=== PATIENT | male | born 1935 | race Caucasian/White ===

== ENCOUNTER → 2016-05-22 | Outpatient (CLI) | payer OTHER, MEDICARE ==
[~2016-05-22] MED LIST: AMLODIPINE BESY1 TAB PO; ANTIBIOTIC O500 U/GM T; B-121000 MCG PO; CLINDAMYCIN150 MG PO; COUMADIN10 M1 PO; HYDRODIURIL25 MG PO; LISINOPRIL40 MG PO; MAGNESIUM DR64 MG PO; METFORMIN HCL500 MG PO; PHENERGAN25 M1 PO; POTASSIUM CHLO20 ME1 PO; PROTONIX40 MG PO; SIMETHICONE PO; WARFARIN SODIUM5 MG PO
--- NOTE | ~2016-05-22 | PR ---
[place], [place] PROGRESS NOTE [id number] UNIT #: [id number] ROOM: DOCTOR: CHICHO OCONNOR M.D. BIRTHDATE: [birth year] DOS: 05/22/2016 CHIEF COMPLAINT: Followup of wound of the right lower extremity. HISTORY OF PRESENT ILLNESS: The location is the anterior lower leg tibia. Quality is diabetic, venous insufficiency, traumatic in nature. Duration has been a little over a month. He comes in today for a subsequent visit. He has been using the dressing which we had recommended, which was Aquacel. He had no complaints of pain or discomfort. No drainage. The wound has been scabbed over and has not drained for the past several days now. His edema is improved with the Tubigrip. OBJECTIVE: VITAL SIGNS: As follows: Blood pressure is 140/80, temperature is 98.2, pulse is 68, respirations 18. SKIN: The wound is essentially healed. There is a small scab over it. It is not tender. There is no purulence. There is no sign of infection. There is no drainage. There is no cellulitis. Edema seems improved. Debridement was not done today. ASSESSMENT AND PLAN: Healed wound of the right lower extremity. We will have the patient just keep this protected for now and to let the scab fall off naturally. I did explain if this reopens, he should come back and see us. I did suggest for him to try to get some compression stockings that are at least light compression that he can wear at home to help his edema. CHICHO OCONNOR MD CM:PNRAMOS [id number] CHICHO OCONNOR M.D. 05/22/16 0850 interface
== END ==
LOC: WOUNDCARE 03:57
DX: E11.622 Type 2 diabetes mellitus with other skin ulcer (principal); I87.2 Venous insufficiency (chronic) (peripheral); L97.811 Non-pressure chronic ulcer of other part of right lower leg limited to breakdown of skin

== ENCOUNTER → 2016-05-28 | Outpatient (CLI) | payer MEDICARE, OTHER ==
--- NOTE | ~2016-05-28 | PR ---
[place], [place] PROGRESS NOTE NAME: GIL BUSTILLO [facility] #: [id number] UNIT #: [id number] ROOM: DOCTOR: ELVIN DasilvaCHICHO BIRTHDATE: [birth year] DOS: 05/28/2016 CHIEF COMPLAINT: Followup of open ulcer of the right lower extremity. HISTORY OF PRESENT ILLNESS: This patient was seen last week and was discharged as it appeared that the wound had healed. It had developed a scab and we asked the patient just to let it fall off naturally. Apparently, he comes in today thinking that it may have opened up again. He said he was wearing a Band-Aid in the shower and it looked like it was starting to open up. He is not having any pain or discomfort. He denies any drainage. No fevers or chills. The wound has been present since approximately 5-6 weeks now. He has associated edema, venous insufficiency on clinical exam. PHYSICAL EXAMINATION: VITAL SIGNS: Stable. Blood pressure is 156/78, pulse of 60, respirations 16, temperature 97.6. EXTREMITIES: The wound is measuring 0.3 x 0.2 x 0.1. It is covered with a soft yellowish dried fibrin slough. This wound had not been debrided before, so I did explain to the patient that we should debride the wound. Debridement was done. The tissue removed was fibrin, slough and subcutaneous tissue. There was minimal amount of bleeding. The patient tolerated the debridement well. Cetacaine spray was used for topical anesthesia. A timeout was conducted prior to the start of the procedure. The post-debridement measurements are 0.8 x 0.4 x 0.2. 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 He does have quite a bit of edema on the right lower extremity. He says he has normally had more edema on the right leg than the left leg. We will go ahead and use a collagen dressing for now and have him use Tubigrip for edema control. I did explain that I would like to go ahead and check his venous and arterial system, those orders have been written for and we will reevaluate the patient next week. He may benefit from compression therapy, but we will see what his vascular status is first. Followup is in one week. [place], [place] PROGRESS NOTE NAME: GIL BUSTILLO UNIT #: [id number] ROOM: DOCTOR: CHICHO OCONNOR M.D. BIRTHDATE: [birth year] CHICHO OCONNOR MD CM:ASMITA [id number] CHICHO OCONNOR M.D. 05/29/16 0044 interface
== END | disposition home or self-care (01) ==
LOC: US 11:31 → WOUNDCARE 11:31
DX: E11.622 Type 2 diabetes mellitus with other skin ulcer (principal); L97.919 Non-pressure chronic ulcer of unspecified part of right lower leg with unspecified severity; I73.9 Peripheral vascular disease, unspecified; R60.0 Localized edema

== ENCOUNTER → 2016-06-04 | Outpatient (CLI) | payer MEDICARE, OTHER ==
--- NOTE | ~2016-06-04 | PR ---
[place], [place] PROGRESS NOTE NAME: GIL BUSTILLO [facility] #: [id number] UNIT #: [id number] ROOM: DOCTOR: CHICHO OCONNOR M.D. BIRTHDATE: [birth year] DOS: 06/04/2016 CHIEF COMPLAINT: Followup of the wound of the right lower extremity. HISTORY OF PRESENT ILLNESS: The location is the anterior lower tibia, quality is diabetic, venous insufficiency and traumatic in origin. Duration has been over a month. He was seen last week as we had thought that the wound had healed, but however, was still and had recurred, so he comes in today, we were using a Tubigrip for compression. The wound was quite small. It looks to be healed at this point. There is a small scab over it. It is not causing any pain. He says his edema is much better than before. His vitals are stable. Temperature is 98.1, pulse is 68, respirations 16, and blood pressure is 140/84. The patient had venous and arterial studies done; the venous was negative for DVT in the arteries were no significant peripheral vascular disease as noted. The wound measurements are essentially 0.1 x 0.1 x 0.1 at this point it is covered with a small scab. This was debrided with a curette fibrin and slough only devitalized tissue was removed. The wound appears healed underneath it. There was no bleeding. The patient tolerated the procedure well. ASSESSMENT AND PLAN: Healed ulceration of the right lower extremity. We will discharge the patient. I did write him a script for light compression stockings to be utilized they have explained, he should use them every day, especially when he first wakes up in the morning and to take them off at night. He is to follow up in the [facility] if he has any repeat ulceration. At this point, he will be discharged. CHICHO OCONNOR MD CM:PNTRANS [id number] CHICHO OCONNOR M.D. 06/04/16 2253 interface
== END ==
LOC: WOUNDCARE 00:53
DX: E11.622 Type 2 diabetes mellitus with other skin ulcer (principal); I87.2 Venous insufficiency (chronic) (peripheral); L97.811 Non-pressure chronic ulcer of other part of right lower leg limited to breakdown of skin

== ENCOUNTER → 2016-06-18 | Outpatient (CLI) | payer MEDICARE ==
[2016-06-18 08:35] LABS: BASO % 0.4 % (0.0-1.0); EOS # 0.1 10*3/uL (0.0-0.4); EOS % 0.9 % (1.0-4.0); HEMATOCRIT 45.3 % (42.0-52.0); HEMOGLOBIN 15.2 g/dl (14.0-18.0); IG # 0.1 10*3/uL (0.0-0.1); LYMPH # 0.8 10*3/uL (1.3-4.4); LYMPH % 8.5 % (27.0-41.0); MEAN CELL VOLUME 90.4 fl (80.0-94.0); MEAN CORPUSCULAR HGB 30.3 pg (27.0-31.0); MEAN CORPUSCULAR HGB CONC 33.6 g/dl (33.0-37.0); MEAN PLATELET VOLUME 9.5 fl (9.6-12.3); MONO # 0.8 10*3/uL (0.1-1.0); MONO % 9.2 % (3.0-9.0); NEUT # 7.3 10*3/uL (2.3-7.9); NEUT % 80.4 % (47.0-73.0); PLATELET COUNT AUTOMATED 196 10*3/uL (130-400); RED BLOOD COUNT 5.01 10*6/uL (4.50-5.90); RED CELL DISTRI WIDTH 13.5 % (0-14.5)
[2016-06-18 08:57] LABS: CHLORIDE 102 mmol/L (98-107); POTASSIUM 3.8 mmol/L (3.5-5.1); SODIUM 136 mmol/L (136-145)
[2016-06-18 09:24] LABS: ALBUMIN 3.3 gm/dl (3.1-4.5); ALKALINE PHOSPHATASE 98 U/L (45-117); BILIRUBIN, TOTAL 1.1 mg/dl (0.2-1.0); BUN 18 mg/dl (7-24); CARBON DIOXIDE 24 mmol/L (21-32); EST GLOM FILT AFRICAN AMERICAN > 60 ml/min; GLUCOSE 99 mg/dL (65-99); SGOT/AST 14 IU/L (3-35); SGPT/ALT 16 U/L (12-78); TOTAL PROTEIN 7.2 gm/dL (6.4-8.2)
[2016-06-19 22:05] LABS: FECAL WBC Final report (None Seen)
== END | disposition home or self-care (01) ==
LOC: LAB 08:08
PROVIDERS: Internal Medicine
DX: K59.1 Functional diarrhea (principal)

== ENCOUNTER → 2016-07-23 | Outpatient (CLI) | payer MEDICARE | END | disposition home or self-care (01) | LOC: LAB 08:12 | DX: R19.7 Diarrhea, unspecified (principal) ==

== ENCOUNTER → 2016-08-19 | Outpatient (CLI) | payer MEDICARE | END | disposition home or self-care (01) | LOC: CARD 08:31 | DX: I08.3 Combined rheumatic disorders of mitral, aortic and tricuspid valves (principal); E11.9 Type 2 diabetes mellitus without complications; I49.9 Cardiac arrhythmia, unspecified; I10 Essential (primary) hypertension; I48.2 Chronic atrial fibrillation; R01.1 Cardiac murmur, unspecified ==

== ENCOUNTER 2016-10-30 07:36 | Inpatient (IN) | payer MEDICARE ==
[~2016-10-30] VITALS: Ht 175.2 cm; Wt 96.4 kg
[2016-10-30] VITALS (7 sets, daily range): BP systolic 128–143; BP diastolic 61–80
--- NOTE | ~2016-10-30 | PR ---
[place], [place] PROGRESS NOTE NAME: GIL BUSTILLO UNIT #: [id number] ROOM: 512 DOCTOR: BLANCA LEVY MD BIRTHDATE: [birth year] DOS: 11/02/2016 SUBJECTIVE: The patient was seen in the Cardiology Department today 11/02/2016 prior to his stress test. He is an 81-year-old man whom I evaluated on 10/30/2016 for permanent atrial fibrillation, slow heart rate response and an elevated troponin. He presented to the hospital with indigestion and dysuria. He was found to have mild elevation in troponin, which was felt to be due to a type 2 myocardial injury. He has had no further problems over the weekend. He is being treated for the urinary tract infection. He continues to have atrial fibrillation with slow ventricular response. PHYSICAL EXAMINATION: VITAL SIGNS: Today, his pulse is 64 and irregularly irregular. Blood pressure is 112/82. NECK: Supple. He has no jugular distention. Carotids are full. LUNGS: Respirations are unlabored. His chest is clear. HEART: Has an irregularly irregular rhythm. He has a grade 4/6 late peaking systolic ejection murmur along left sternal border. There are no diastolic murmurs present. The second heart sound is well preserved. ABDOMEN: Benign. EXTREMITIES: Showed no edema. IMPRESSION: 1. Myocardial injury, most likely due to demand ischemia. 2. Permanent atrial fibrillation. 3. Conduction system disorder, manifested by a slow ventricular response to the patient's atrial fibrillation. 4. Type 2 diabetes mellitus. 5. Essential hypertension. 6. Urinary tract infection. PLAN: We will risk stratify him further with a pharmacologic stress test today. Further recommendations will depend upon the results of his stress test. [place], [place] PROGRESS NOTE NAME: GIL BUSTILLO UNIT #: [id number] ROOM: 512 DOCTOR: BLANCA LEVY MD BIRTHDATE: [birth year] BLANCA LEVY MD CM:PNTRANS [id number] BLANCA LEVY MD 11/02/16 1116 interface
--- NOTE | ~2016-10-30 | CON ---
[place], [place] REPORT OF CONSULTATION NAME: GIL BUSTILLO UNIT #: [id number] ROOM: 512 DOCTOR: BLANCA LEVY MD BIRTHDATE: [birth year] DOS: 10/30/2016 REASON FOR CONSULTATION: Elevated troponin. HISTORY OF PRESENT ILLNESS: The patient is an 81-year-old man who is known to have chronic atrial fibrillation with a fairly slow ventricular response as well as moderate to severe aortic stenosis. He is being followed clinically. He is very sedentary because of severe degenerative joint disease. He is also known to have prostatic hypertrophy. The patient states that about 3 days ago, he ate a spare ribs and developed indigestion afterwards. The indigestion has persisted. He took antacids without any relief and then became concerned that the indigestion may be related to a cardiac issue. He therefore came to the emergency room. He was found to have atrial fibrillation with a fairly slow ventricular response and heart rate of about 60. His EKG showed an intraventricular conduction delay with left anterior fascicular block and atrial fibrillation, but no acute ST changes. Troponin levels were minimally elevated at 0.192, 0.265 and 0.283. Cardiology was therefore requested to assess the patient. He denies any chest pain, lightheadedness or syncope. He denies any dyspnea. He has not had any unexplained diaphoresis. He has been found, however, to have urinary tract infection with elevated white count at 11,200. PAST MEDICAL HISTORY: Positive for the followin. Atrial fibrillation with a fairly slow ventricular response. 2. Probable conduction system disorder. 3. Aortic stenosis. The patient's last echocardiogram on 08/19/2016 showed normal left ventricular size with mild concentric left ventricular hypertrophy, ejection fraction 60% with stage 1 diastolic relaxation abnormalities. Aortic valve is thickened with decreased leaflet excursion. Peak and mean gradients are 50 and 28 mmHg respectively with a calculated valve area of 0.9 cm2. Right ventricular systolic pressure was elevated at greater than 60 mmHg. 4. The patient reports history of several stress tests in the past. He was never told that any of them were abnormal. I have no record of a stress test at [facility]. 5. Essential hypertension. 6. Type 2 diabetes mellitus. 7. History of left total knee replacement. 8. History of cholecystectomy. MEDICATIONS: Prior to admission, amlodipine 10 mg daily, vitamin D 2000 units daily, vitamin B12 1000 mcg p.o. daily, hydrochlorothiazide 12.5 mg daily, lisinopril 40 mg daily, magnesium chloride 64 mg daily, metformin 500 mg t.i.d., potassium 20 mEq b.i.d., Florastor 250 mg b.i.d. and warfarin 7.5 mg alternating with 10 mg daily. ALLERGIES: He has no known drug allergies. REVIEW OF SYSTEMS: The patient denies diplopia or loss of vision. He denies [place], [place] REPORT OF CONSULTATION NAME: GIL BUSTILLO UNIT #: [id number] ROOM: 512 DOCTOR: BLANCA LEVY MD BIRTHDATE: [birth year] any focal weakness. He denies any lightheadedness or syncope. He denies orthopnea or PND. He denies fevers, chills or sweats. He denies any change in his bowel habits and denies any blood in stools. He does note that he is having a hard time passing his urine and he has dysuria and increased urinary frequency along with urgency, but no hematuria. He denies any peripheral edema. He does have chronic leg weakness and pain in his legs from degenerative joint disease. He does have swelling and pain in both of his knees. He denies polyuria or polydipsia. Remainder of the review of systems is negative except as noted above. FAMILY HISTORY: His father of cancer at age 82 and his mother of diabetes at age 81. SOCIAL HISTORY: The patient is and lives with his . He denies alcohol consumption. He was a smoker, but quit many years ago. PHYSICAL EXAMINATION: GENERAL: Reveals an elderly white male who is awake, alert and oriented. VITAL SIGNS: Pulse is 60 and irregularly irregular, blood pressure is 131/65. He is afebrile. He weighs 96.4 kg and has a body mass index of 31.4. HEENT: Normocephalic, atraumatic. Extraocular muscles are intact. Sclerae are clear. Pupils are round and reactive to light. The oral mucosa is moist. Tongue is midline. NECK: Supple. He has no jugular distention. Carotid upstrokes are somewhat slow. He does have transmitted murmurs into the carotids bilaterally. He has no neck or supraclavicular masses. No thyromegaly. LUNGS: Respirations are unlabored. His chest is clear to auscultation and percussion. He had no presacral edema or chest wall tenderness. CARDIOVASCULAR: His heart has an irregularly irregular rhythm. He has a grade 3/6 late peaking systolic ejection murmur along the left sternal border radiating toward the base. There are no diastolic murmurs. The first and second heart sounds are well preserved. There is no precordial heave, lift or thrill. ABDOMEN: Soft and normoactive. It is somewhat distended, but there is no fluid wave. There is no mass or tenderness and no rebound. EXTREMITIES: Show no pitting edema. Peripheral pulses are diminished in the feet. He has no cords or Homans sign. LABORATORY DATA: I reviewed his electrocardiogram, which shows atrial fibrillation with a fairly slow ventricular response. He has a left anterior fascicular block and an intraventricular conduction delay. IMPRESSION: 1. Elevated troponin, most likely, this represents a type 2 myocardial injury (demand ischemia) related to the patient's left ventricular hypertrophy, aortic stenosis, and compounded by a urinary tract infection. 2. Permanent atrial fibrillation. 3. Conduction system disorder with slow ventricular response to atrial fibrillation. 4. Type 2 diabetes mellitus. [place], [place] REPORT OF CONSULTATION NAME: GIL BUSTILLO UNIT #: [id number] ROOM: 512 DOCTOR: BLANCA LEVY MD BIRTHDATE: [birth year] 5. Essential hypertension. 6. Acute urinary tract infection. PLAN: I would continue to follow serial troponin levels to make sure that the patient does not have a diagnostic rise and fall in his troponin. For now; however, I think that he should have the urinary tract infection effectively treated. If he has no problems over the weekend, then I would do a risk stratifying myocardial perfusion study this coming Wednesday and further recommendations depend upon that. We will also be getting an echocardiogram to assess his left ventricular systolic function again. We will follow him with his primary physicians and we thank the hospitalist physicians for asking our advice regarding his care. BLANCA LEVY MD CM:CONSTR:REPORT OF CONSULTATION 1751 10/31/16 0258 interface
[2016-10-30 08:37] LABS: BILIRUBIN 1+ (NEGATIVE); BLOOD 3+ (NEGATIVE); CLARITY CLOUDY (CLEAR); COLOR YELLOW (YELLOW); GLUCOSE TRACE (NEGATIVE); KETONE TRACE (NEGATIVE); LEUKO ESTERASE TRACE (NEGATIVE); NITRITE NEGATIVE (NEGATIVE); SPECIFIC GRAVITY 1.025 (1.005-1.030)
[2016-10-30 08:44] LABS: BACTERIA 3+; RBC TNTC rbc/hpf (0-2); WBC TNTC wbc/hpf (0-5)
[2016-10-30 08:49] LABS: BASO % 0.2 % (0.0-1.0); EOS % 0.1 % (1.0-4.0); HEMATOCRIT 44.7 % (42.0-52.0); HEMOGLOBIN 14.7 g/dl (14.0-18.0); LYMPH # 0.5 10*3/uL (1.3-4.4); LYMPH % 4.6 % (27.0-41.0); MEAN CELL VOLUME 90.7 fl (80.0-94.0); MEAN CORPUSCULAR HGB 29.8 pg (27.0-31.0); MEAN CORPUSCULAR HGB CONC 32.9 g/dl (33.0-37.0); MEAN PLATELET VOLUME 9.9 fl (9.6-12.3); MONO # 0.8 10*3/uL (0.1-1.0); MONO % 7.3 % (3.0-9.0); NEUT # 9.8 10*3/uL (2.3-7.9); NEUT % 87.4 % (47.0-73.0); PLATELET COUNT AUTOMATED 161 10*3/uL (130-400); RED BLOOD COUNT 4.93 10*6/uL (4.50-5.90); WHITE BLOOD COUNT 11.2 10*3/uL (4.8-10.8)
[2016-10-30 08:58] LABS: ACT PARTIAL THROMBO TIME 44.3 SECONDS (20.8-31.5); INTERNATIONAL NORM RATIO 2.9 (2.0-3.5)
[2016-10-30 09:05] LABS: ALBUMIN 2.6 gm/dl (3.1-4.5); ALKALINE PHOSPHATASE 97 U/L (45-117); BUN 19 mg/dl (7-24); CHLORIDE 100 mmol/L (98-107); CREATININE 1.23 mg/dL (0.70-1.30); LIPASE 87 U/L (73-393); POTASSIUM 3.8 mmol/L (3.5-5.1); SGOT/AST 15 IU/L (3-35); SGPT/ALT 14 U/L (12-78); SODIUM 136 mmol/L (136-145); TOTAL PROTEIN 6.9 gm/dL (6.4-8.2)
[2016-10-30 09:13] LABS: TROPONIN I 0.192 ng/ml (<0.045)
--- NOTE | 2016-10-30 09:15 | NUR ---
DR MANCUSO NOTIFIED OF PATIENTS CRITICAL LAB RESULT TROPONIN.
--- NOTE | 2016-10-30 09:58 | NUR ---
REPORT GIVEN TO CJ DAY AT THIS TIME. PATIENT TRANSPORTED TO 5TH FLOOR BY THIS NURSE.
--- NOTE | 2016-10-30 10:00 | NUR ---
PATIENT NOTED WITH +[address] PITT[address] LOWER LEG E[address] MANCUSO AWARE.
--- NOTE | 2016-10-30 10:20 | NUR ---
A 81YO MALE, admitted to , under the services of RICHARD Ross DO with a diagnosis of NSTEMI/UTI. Chief complaint is EPIGASTRIC DISCOMFORT SINCE WEDNESDAY WITH NAUSEA, ALSO BURNING W/URINATION. Patient arrived via stretcher from ER. Monitor applied. Initial assessment completed. Vital signs taken and recorded. RICHARD ROSS DO notified of admission to the unit. Orders received. See assessment for past medical history, medications and allergies. Patient and/or family oriented to unit. [facility] visitation policy reviewed. Clothing/patient valuable form completed. CJ PEACOCK
--- NOTE | 2016-10-30 10:21 | NUR ---
5TH FLOOR NOTIFIED OF PATIENT IN ROOM. PATIENT USING RESTROOM.
[2016-10-30] MEDS ORDERED: VITAMIN D-32000 UNIT PO (10:54)
[2016-10-30] MEDS ORDERED: METFORMIN500 MG PO (10:54)
[2016-10-30] MEDS ORDERED: POTASSIUM CHLO20 ME3 PO (10:55)
[2016-10-30] MEDS ORDERED: HYDR25T PO (10:56)
--- NOTE | 2016-10-30 11:02 | NUR ---
MED REC UPDATED/COMPLETED USING INFORMATION FROM MEDICATIONS LIST PROVIDED BY THE PATIENT'S , LIST IS ON CHART.
--- NOTE | 2016-10-30 11:27 | NUR ---
PER DR. FERNÁNDEZ, HE WAS NOTIFIED OF CONSULT BY ED STAFF THIS MORNING.
--- NOTE | 2016-10-30 13:00 | NUR ---
DR. LEVY NOTIFIED OF MOST RECENT TROPONIN I, MAY PROCEED WITH CARDIAC DIET ORDER FOR LUNCH, PER DR. ELVY.
--- NOTE | 2016-10-30 15:53 | NUR ---
HEART RATE AFIB AND IRREGULAR IN 50'S, OCCASIONALLY LOW 36 BPM FOR BRIEF PERIODS OF TIME (LESS THAN [address]) [address] LEVY NOTIFIED.
[2016-10-30] MEDS ORDERED: KENALOG 0.1%80 GM T (16:29)
[2016-10-30] MEDS ORDERED: FLORASTOR250 MG PO (16:29)
--- NOTE | 2016-10-30 16:30 | NUR ---
PATIENT STATES TAKES 2 MG TABS OF COUMADIN NOT ONE THIS EVENING. MEDS LIST PROVIDED BY PATIENT STATES ONE TAB M/W/F AND ONE AND A HALF TABS T/H/SAT/SUN. PATIENT STATES TAKES 2 TABS T/W/H/F AND ONE AND A HALF TABS SAT/SUN/MON. CALLED PATIENT'S PHARMACY TO CONFIRM MEDS, ADDED KENALOG CREAM AND FLORASTOR TO MED REC, [facility]
[2016-10-31] VITALS: BP 117/56
[2016-10-31 06:25] LABS: BASO % 0.1 % (0.0-1.0); EOS # 0.1 10*3/uL (0.0-0.4); EOS % 0.7 % (1.0-4.0); HEMATOCRIT 41.4 % (42.0-52.0); HEMOGLOBIN 13.8 g/dl (14.0-18.0); LYMPH # 0.7 10*3/uL (1.3-4.4); LYMPH % 8.6 % (27.0-41.0); MEAN CELL VOLUME 89.4 fl (80.0-94.0); MEAN CORPUSCULAR HGB 29.8 pg (27.0-31.0); MEAN CORPUSCULAR HGB CONC 33.3 g/dl (33.0-37.0); MEAN PLATELET VOLUME 10.3 fl (9.6-12.3); MONO # 0.8 10*3/uL (0.1-1.0); MONO % 9.2 % (3.0-9.0); NEUT # 6.8 10*3/uL (2.3-7.9); NEUT % 80.8 % (47.0-73.0); PLATELET COUNT AUTOMATED 168 10*3/uL (130-400); RED BLOOD COUNT 4.63 10*6/uL (4.50-5.90); RED CELL DISTRI WIDTH 14.4 % (0-14.5); WHITE BLOOD COUNT 8.4 10*3/uL (4.8-10.8)
[2016-10-31 06:59] LABS: ALBUMIN 2.4 gm/dl (3.1-4.5); ALKALINE PHOSPHATASE 94 U/L (45-117); BUN 25 mg/dl (7-24); CHLORIDE 98 mmol/L (98-107); CHOLESTEROL 120 mg/dL (<200); CREATININE 1.34 mg/dL (0.70-1.30); FREE T4 1.37 ng/dl (0.76-1.46); HDL CHOLESTEROL 47 mg/dl (40-60); INTERNATIONAL NORM RATIO 2.9 (2.0-3.5); LDL CHOLESTEROL 56 mg/dL (9-159); MAGNESIUM 1.9 mg/dL (1.5-2.1); PHOSPHOROUS 3.1 mg/dL (2.5-4.9); POTASSIUM 3.5 mmol/L (3.5-5.1); SGOT/AST 11 IU/L (3-35); SGPT/ALT 12 U/L (12-78); SODIUM 136 mmol/L (136-145); TOTAL PROTEIN 6.6 gm/dL (6.4-8.2); TRIGLYCERIDES 87 mg/dl (<150); VLDL CHOLESTEROL 17 mg/dL (6-40)
[2016-10-31 08:00] VITALS: BP 146/70
[2016-10-31 09:12] LABS: VITAMIN D, 25-HYDROXY 32.6 ng/mL (30-100)
--- NOTE | 2016-10-31 11:49 | NUR ---
DR VAUGHN NOTIFIED OF PT IS HAVING BRADYCARDIA WITH LOPRESSOR GIVEN THIS AM. ORDERS RECEIVED TO HOLD IF HEART RATE LESSA THAN 55. WILL MONITOR
[2016-10-31 12:00] VITALS: BP 119/56
[2016-10-31 16:00] VITALS: BP 141/75
[2016-10-31 20:00] VITALS: BP 150/68
--- NOTE | 2016-10-31 20:00 | NUR ---
RESTING IN BED WATCHING TV WITH NO DISTRESS NOTED. RESPIRATIONS EASY. LUNGS DIMINISHED, CLEAR. PULSE OX 97% RA. TRACE BLE EDEMA. CALL LIGHT WITHIN REACH. NO VOICED COMPLAINTS. PRESENT AT BEDSIDE
--- NOTE | 2016-10-31 22:00 | NUR ---
LOPRESSOR HELD PER DR PARAMETERS. HR 45. PATIENT ASYMTPOMATIC
[2016-11-01] VITALS: BP 160/80
--- NOTE | 2016-11-01 | NUR ---
DROWSY, RESTING IN BED. RESPIRATIONS EASY. VSS. CALL LIGHT WITHIN REACH. PRESENT AT BEDSIDE.
--- NOTE | 2016-11-01 04:30 | NUR ---
SLEEPING. NO DISTRESS NOTED. RESPIRATIONS EASY. CALL LIGHT WITHIN REACH. REMAINS SLEEPING AT BEDSIDE
--- NOTE | 2016-11-01 06:00 | NUR ---
SLEPT THROUGHOUT NIGHT WITH NO DISTRESS NOTED. RESPIRATIONS EASY. CALL LIGHT WITHIN REACH. NO VOICED COMPLAINTS THIS SHIFT. REMAINS AT BEDSIDE
[2016-11-01 06:41] LABS: BASO % 0.4 % (0.0-1.0); EOS # 0.1 10*3/uL (0.0-0.4); HEMATOCRIT 42.3 % (42.0-52.0); HEMOGLOBIN 13.9 g/dl (14.0-18.0); LYMPH # 0.7 10*3/uL (1.3-4.4); LYMPH % 12.1 % (27.0-41.0); MEAN CELL VOLUME 89.6 fl (80.0-94.0); MEAN CORPUSCULAR HGB 29.4 pg (27.0-31.0); MEAN CORPUSCULAR HGB CONC 32.9 g/dl (33.0-37.0); MEAN PLATELET VOLUME 10.6 fl (9.6-12.3); MONO # 0.6 10*3/uL (0.1-1.0); MONO % 10.8 % (3.0-9.0); NEUT # 4.1 10*3/uL (2.3-7.9); NEUT % 74.2 % (47.0-73.0); PLATELET COUNT AUTOMATED 180 10*3/uL (130-400); RED BLOOD COUNT 4.72 10*6/uL (4.50-5.90); RED CELL DISTRI WIDTH 13.9 % (0-14.5); WHITE BLOOD COUNT 5.6 10*3/uL (4.8-10.8)
[2016-11-01 06:43] LABS: INTERNATIONAL NORM RATIO 3.2 (2.0-3.5)
[2016-11-01 07:09] LABS: ALBUMIN 2.3 gm/dl (3.1-4.5); ALKALINE PHOSPHATASE 93 U/L (45-117); BUN 30 mg/dl (7-24); CHLORIDE 99 mmol/L (98-107); CREATININE 1.35 mg/dL (0.70-1.30); POTASSIUM 3.4 mmol/L (3.5-5.1); SGOT/AST 14 IU/L (3-35); SGPT/ALT 12 U/L (12-78); SODIUM 136 mmol/L (136-145); TOTAL PROTEIN 6.5 gm/dL (6.4-8.2)
[2016-11-01 08:00] VITALS: BP 142/66
--- NOTE | 2016-11-01 11:19 | NUR ---
PT C/O CONSTIPATION. DULCOLAX 5 MG GIVEN PER PT REQUEST.
[2016-11-01 12:00] VITALS: BP 141/67
[2016-11-01 16:00] VITALS: BP 151/64
--- NOTE | 2016-11-01 19:56 | NUR ---
PATIENT IS RESTING IN BED WITH AT BEDSIDE. PLEASANT/COOPERATIVE WITH CARE. NO VOICED COMPLAINTS. NO SXS OF DISTRESS. CALL LIGHT IS IN REACH. WILL MONITOR.
[2016-11-01 20:00] VITALS: BP 160/63
[2016-11-02] VITALS: BP 179/90
--- NOTE | 2016-11-02 02:48 | NUR ---
PATIENT IS RESTING IN BED WITH AT THE BEDSIDE. NO COMPLAINTS AT THIS TIME. CALL LIGHT IS IN REACH. WILL CONTINUE TO MONITOR.
[2016-11-02 04:30] VITALS: BP 144/70
--- NOTE | 2016-11-02 06:34 | NUR ---
SLEPT THROUGHOUT SHIFT WITH NO VOICED COMPLAINTS. CURRENTLY SITTING IN ROOM WITH . NO SXS OF DISTRESS AND CALL LIGHT IS IN REACH.
[2016-11-02 06:51] LABS: INTERNATIONAL NORM RATIO 2.2 (2.0-3.5)
--- NOTE | 2016-11-02 08:03 | NUR ---
CHART CHECK COMPLETE.
--- NOTE | 2016-11-02 09:00 | NUR ---
case management attempted to visit with patient, patient out of his room for testing, will see later today
--- NOTE | 2016-11-02 09:02 | NUR ---
PT OFF FLOOR FOR STRESS TEST WITH DR LEVY.
--- NOTE | 2016-11-02 10:12 | NUR ---
INFORMED CONSENT SIGNED FOR LEXISCAN STRESS TEST WITH DR. LEVY. RESTING EKG A-FIB WITH PVCS, TRIGEMINY, HR 69, BP 128/88. PULSE OX 97% AND LUNGS CLEAR. COMPLETED ONE MINUTE OF LEXISCAN PROTOCOL RECEIVING LEXISCAN 0.4MG OVER 10 SECONDS. PVC'S (COUPLETS/TRIPTLETS) NOTED WITH NO ST CHANGES. PT C/O SOB. LAST RECOVERY HR 65, BP 136/80. WAITING NUCLEAR SCANNING IN STABLE CONDITION.
[2016-11-02 12:00] VITALS: BP 134/81
--- NOTE | 2016-11-02 12:35 | NUR ---
PT BACK TO ROOM AND ORDER RECEIVED FOR PT TO RESUME DIET FROM DR LEVY.
[2016-11-02] MEDS ORDERED: ATORVASTATIN CA80 M1 PO (14:51)
[2016-11-02] MEDS ORDERED: LOPRESSOR25 MG PO (14:51)
--- NOTE | 2016-11-02 16:16 | NUR ---
Discharge instructions reviewed with patient/family. Patient receptive and verbalizes understanding. Follow-up care arranged. Written instructions given to patient/family.TELEMETRY ACCOUNTED FOR AND HEPLOCK REMOVED. MIGNON COSTELLO
== END 2016-11-02 16:15 | disposition home or self-care (01) | DRG 280 ==
LOC: ED 07:36 → 5E 09:40 → EDHOLD 09:40 → 5E 09:48
PROVIDERS: Emergency Medicine; Family Medicine; Internal Medicine; ADMIT Internal Medicine
PROC: 4A02XM4 Measurement of Cardiac Total Activity, External Approach (ICD-10-PCS; principal; 2016-11-02)
PROC: 3E073KZ Introduction of Other Diagnostic Substance into Coronary Artery, Percutaneous Approach (ICD-10-PCS; principal; 2016-11-02)
DX: I21.4 Non-ST elevation (NSTEMI) myocardial infarction (principal); E43 Unspecified severe protein-calorie malnutrition; R00.1 Bradycardia, unspecified; N39.0 Urinary tract infection, site not specified; I50.9 Heart failure, unspecified; I11.0 Hypertensive heart disease with heart failure; I48.2 Chronic atrial fibrillation; N40.0 Benign prostatic hyperplasia without lower urinary tract symptoms; M19.90 Unspecified osteoarthritis, unspecified site; I35.0 Nonrheumatic aortic (valve) stenosis; Z96.652 Presence of left artificial knee joint; E11.9 Type 2 diabetes mellitus without complications; F91.9 Conduct disorder, unspecified; Z79.4 Long term (current) use of insulin; Z85.828 Personal history of other malignant neoplasm of skin; Z83.3 Family history of diabetes mellitus; Z90.49 Acquired absence of other specified parts of digestive tract; Z80.9 Family history of malignant neoplasm, unspecified; Z79.01 Long term (current) use of anticoagulants; Z79.84 Long term (current) use of oral hypoglycemic drugs; Z79.899 Other long term (current) drug therapy; Z87.891 Personal history of nicotine dependence

== ENCOUNTER → 2017-08-13 | Outpatient (CLI) | payer MEDICARE ==
[~2017-08-13] MED LIST changes: +ATORVASTATIN CA80 M1 PO; +FLORASTOR250 MG PO; +HYDR25T PO; +KENALOG 0.1%80 GM T; +LOPRESSOR25 MG PO; +METFORMIN500 MG PO; +POTASSIUM CHLO20 ME3 PO; +VITAMIN D-32000 UNIT PO
== END | disposition home or self-care (01) ==
LOC: CARD 01:36
DX: I35.0 Nonrheumatic aortic (valve) stenosis (principal); I48.91 Unspecified atrial fibrillation

== ENCOUNTER → 2017-10-11 | Outpatient (CLI) | payer MEDICARE | END | disposition home or self-care (01) | LOC: WOUNDCARE 12:06 | DX: S81.802A Unspecified open wound, left lower leg, initial encounter (principal); M79.662 Pain in left lower leg; E11.65 Type 2 diabetes mellitus with hyperglycemia; I10 Essential (primary) hypertension; I25.2 Old myocardial infarction; I48.91 Unspecified atrial fibrillation; Z85.828 Personal history of other malignant neoplasm of skin; Z87.891 Personal history of nicotine dependence; Z96.659 Presence of unspecified artificial knee joint; X58.XXXA Exposure to other specified factors, initial encounter; Y93.89 Activity, other specified; Y92.89 Other specified places as the place of occurrence of the external cause; Y99.8 Other external cause status ==

== ENCOUNTER → 2017-10-12 | Outpatient (CLI) | payer MEDICARE | END | disposition home or self-care (01) | LOC: US 11:31 | DX: L03.116 Cellulitis of left lower limb (principal) ==

== ENCOUNTER → 2017-12-23 | Outpatient (CLI) | payer MEDICARE ==
--- NOTE | ~2017-12-23 | HM ---
[place], [place] HOLTER MONITOR REPORT NAME: GIL BUSTILLO UNIT #: [id number] ROOM: DOCTOR: BLANCA LEVY MD BIRTHDATE: [birth year] DOS: 12/24/2017 A 24-HOUR HOLTER MONITOR Study was done from 12/23/2017 to 12/24/2017. The recording was analyzed on 12/24/2017 and interpretation dictated 12/24/2017. INDICATIONS: Atrial fibrillation. FINDINGS: The patient's rhythm was recorded utilizing a Holter device for 24 hours. The patient was in atrial fibrillation throughout the study. The average heart rate was 51. Heart rate varied from a 32-102 beats per minute during the study. Frequent isolated PVCs with occasional triplets were recorded. There was no sustained ventricular tachycardia seen. Frequent wide complex beats were seen, which probably represented a right bundle branch block, which was intermittent during the study and did not appear to be rate related. There was no prolonged pause recorded and the longest pause was 2 seconds. No diary was returned. IMPRESSION: 1. Atrial fibrillation with a relatively slow heart rate response. Average heart rate in the 24 hours was 51 beats per minute. 2. Frequent isolated PVCs with occasional ventricular triplets, but no ventricular tachycardia. 3. Intermittent, non-rate related right bundle branch block. BLANCA LEVY MD CM:HOLTER:HOLTER MONITOR REPORT [id number] BLANCA LEVY MD
== END | disposition home or self-care (01) ==
LOC: CARD 08:37
DX: I48.91 Unspecified atrial fibrillation (principal); E11.9 Type 2 diabetes mellitus without complications